=== PATIENT | female | born 1930 | race Caucasian/White ===

== ENCOUNTER → 2017-03-18 | Outpatient (CLI) | payer MEDICARE, OTHER ==
--- NOTE | 2017-03-18 16:06 | US ---
EXAMINATION TYPE: US kidneys/renal and bladder DATE OF EXAM: 03/18/2017 COMPARISON: NONE CLINICAL HISTORY: Hematuria R31.9; Prior UTI 3 weeks ago. EXAM MEASUREMENTS: Right Kidney: 8.8 x 4.7 x 3.8 cm Left Kidney: 8.2 x 4.2 x 3.6 cm Post Void Residual Volume: 8.5 mL Right Kidney: Parapelvic cyst simple appearing = 1.3 x 1.3 x 1.1cm Left Kidney: No hydronephrosis or masses seen Bladder: wnl Bilateral Jets seen: Yes Normal Post Void Residual: Yes IMPRESSION: No significant finding is seen to account for patient's symptoms.
== END | disposition home or self-care (01) ==
LOC: RADUSWWP 14:58
PROVIDERS: ATTEND Internal Medicine Geriatric Medicine
DX: R31.9 Hematuria, unspecified (principal)
CPT/HCPCS: 76770